=== PATIENT | male | born 1950 | race Caucasian/White ===

== ENCOUNTER 2018-02-20 19:10 | Inpatient (IN) ==
[2018-02-20] MEDS ORDERED: SALINE FLUSH 10ml SYRINGE IVF PRN (19:34)
[2018-02-20] MEDS ORDERED: DiltiaZEM 25 MG/5 ML INJECTION IVP ONE (19:35)
--- NOTE | 2018-02-20 20:57 | Emergency Department Report ---
SOB HPI - General Chief Complaint: Shortness of Breath/Dyspnea <Adriano Aguirre 02/20/18 21:13> Stated Complaint: hbp <Adriano Aguirre 02/20/18 21:13> Time Seen by Provider: 02/20/18 19:22 <Adriano Aguirre 02/20/18 21:13> Source: patient <Jane Coats 02/20/18 21:11> Mode of arrival: ambulatory <Jorge LJane 02/20/18 21:11> Limitations: no limitations <Jorge LJane Angella Marla 02/20/18 21:11> - History of Present Illness Pt presented to his PCP this afternoon with a complaint of SOA and cough for about 3 weeks. HR of 150 noted at PCP and pt sent to ER. When pt first developed cough and SOA he assumed he had Lyme disease and started treating himself with Vitamin C and another herbal medication. PT denies chest pain, palpitations, fever, weakness, or rash <Jane Coats 02/20/18 21:11> MD Complaint: shortness of breath, cough <Jane Coats 02/20/18 21:11> Onset (ago): week(s) <Jane Coats 02/20/18 21:11> Consistency/Duration: constant <Jane Coats 02/20/18 21:11> Relieving factors: nothing <Jane Coats 02/20/18 21:11> Exacerbating factors: exertion <Jane Coats 02/20/18 21:11> Associated symptoms: denies other symptoms <Jane Coats 02/20/18 21: 11> - Related Data Home Medications Medication Instructions Recorded Confirmed Ascorbate Calcium [Vitamin C] 500 mg PO DAILY 02/20/18 02/20/18 Garlic 1 tab PO DAILY 02/20/18 02/20/18 Magnesium Oxide [Magnesium] 400 mg PO DAILY 02/20/18 02/20/18 Potassium 99 mg PO DAILY 02/20/18 02/20/18 <Adriano Aguirre 02/20/18 21:13> Allergies Allergy/AdvReac Type Severity Reaction Status Date / Time No Known Allergies Allergy Verified 02/20/18 19:31 <Adriano Aguirre - 02/20/18 21:13> Review of Systems All systems: reviewed and negative except as stated <Jane Coats 21:11> Constitutional: Reports: as per HPI <Jane Coats 02/20/18 21:11> Cardiovascular: Reports: as per HPI <Jane Coats 02/20/18 21:11> Respiratory: Reports: as per HPI <Jane Coats 02/20/18 21:11> Musculoskeletal: Reports: as per HPI <Jane Coats 02/20/18 21:11> Integumentary: Reports: as per HPI <Jane Coats 02/20/18 21:11> [facility] Patient Stated Medical History Other HEENT Wears glasses <Adriano Aguirre 02/20/18 21:13> Surgical History: *Hernia times 2 <Jane Coats 02/20/18 21:11> - Social History Smoking status: Never smoker <Jane Coats 02/20/18 21:11> Substance use type: does not use <Jane Coats 02/20/18 21:11> Alcohol intake frequency: does not drink <Jane Coats 02/20/18 21:11> Physical Exam - Limitations Limitations: no limitations <Jane Coats 02/20/18 21:11> - General General appearance: alert, in no apparent distress <Jane Coats 02/20 21:11> - Normal Exams: Head:: Normocephalic without trauma <Jane Coats 02/20/18 21:11> Neck:: Full range of motion, without adenopathy <Jane Coats 21:11> Chest/Respirations:: Clear all [place], with good airflow, and symmetry bilaterally <Jane Coats 02/20/18 21:11> Abdomen:: Bowel sounds positive, soft, non-tender, non-distended <Jane Coats 02/20/18 21:11> Musculoskeletal:: No tenderness, or deformity noted, good range of motion, all extremities <Jane Coats 02/20/18 21:11> Integumentary:: No rashes <Jane Coats 02/20/18 21:11> Neurological:: Patient is alert, and oriented, cranial nerves, motor/sensory/ cerebellar, exams w/o gross deficits, to observation <Jane Coats 21:11> Psychiatric:: Patient exhibits, appropriate attention, emotion and affect < Jane Coats 02/20/18 21:11> - Cardiovascular Cardiovascular exam: Present: irregular rhythm <Jane Coats 02/20/18 21:11> - Expanded Cardiovascular Exam Peripheral pulses: 2+: dorsalis pedis (L) (1+ pitting edema jacob) <Jane Coats 02/20/18 21:11> Course Vital Signs Temperature 98.6 F 02/20/18 19:10 Pulse Rate 145 H 02/20/18 19:10 Respiratory Rate 20 02/20/18 19:10 Blood Pressure 128/69 02/20/18 19:10 Pulse Oximetry 95 02/20/18 19:10 Temperature 98.6 F 02/20/18 19:10 Pulse Rate 113 H 02/20/18 20:53 Respiratory Rate 31 H 02/20/18 20:53 Blood Pressure 111/73 02/20/18 20:53 Pulse Oximetry 95 02/20/18 20:53 <Adriano Aguirre - 02/20/18 21:13> Vital Signs Temperature 98.6 F 02/20/18 19:10 Pulse Rate 145 H 02/20/18 19:10 Respiratory Rate 20 02/20/18 19:10 Blood Pressure 128/69 02/20/18 19:10 Pulse Oximetry 95 02/20/18 19:10 Temperature 98.6 F 02/20/18 19:10 Pulse Rate 114 H 02/20/18 20:28 Respiratory Rate 28 H 02/20/18 20:28 Blood Pressure 110/60 02/20/18 20:28 Pulse Oximetry 97 02/20/18 20:28 <Jane Coats 02/20/18 21:11> Shortness of Breath/Dyspnea - [facility] Narrative Medical decision making narrative: Labs reviewed with no acute findings. EKG shows an A fib with RVR, CXR shows some pulmonary edema per Dr Aguirre. Pt received 20 mg of Cardizem with a drop in his rate to 95-115. Pt also received Lovenox SQ. Dr Clemens notified and will admit to CCU. PT educated on A fib, processes and care expectations. Pt and family voice understanding. <Jane Coats - 02/20/18 21:11> - Differential Diagnosis Likely: congestive heart failure, community acquired pneumonia (arrhythmia, SC, CHF), asthma with exacerbation <Jane Coats - 02/20/18 21:11> - Lab Data Attestation: I reviewed the patient's lab results. <Jane Coats - 02/20 21:11> Result diagrams: 02/20/18 19:43 02/20/18 19:43 <Adriano Aguirre - 02/20/18 21:13> Lab Results 02/20/18 02/20/18 Range/Units 19:43 19:43 WBC 7.4 (4.5-11.0) T/MM3 RBC 4.35 L (4.50-5.90) M/MM3 Hgb 14.6 (13.5-17.5) GM/DL Hct 42.2 (41-53) % MCV 97.0 (80-100) UM3 MCH 33.6 (26-34) UUG MCHC 34.6 (31-37) GM/DL RDW Std Deviation 48.9 (36.9-50.2) FL Plt Count 141 (130-400) T/MM3 MPV 11.6 (9.4-12.4) UM3 Immature Gran % (Auto) 0.1 (0.0-0.5) % Neut % (Auto) 58.3 (33-66) % Lymph % (Auto) 34.5 (23-45) % Ellis % (Auto) 6.1 (0-9.0) % Eos % (Auto) 0.7 (0-4) % Baso % (Auto) 0.3 (0-2) % Neut # (Auto) 4.3 (1.8-7.7) T/MM3 Lymph # (Auto) 2.6 (1-4.8) T/MM3 Ellis # (Auto) 0.5 (0-0.8) T/MM3 Eos # (Auto) 0.1 (0-0.5) T/MM3 Baso # (Auto) 0.0 (0-0.2) T/MM3 Abs Immat Gran (auto) 0.01 (0.00-0.03) T/MM3 Turbidity < 20 (0-20) Sodium 143 (136-146) MEQ/L Potassium 4.1 (3.6-5) MEQ/L Chloride 112 H (98-107) MEQ/L Carbon Dioxide 21 L (22-30) MEQ/L Anion Gap 10 (5-15) meq/L BUN 18.0 (9-20) MG/DL Creatinine 1.0 (0.8-1.5) mg/dL GFR Calculation 74 BUN/Creatinine Ratio 18 (6-26) RATIO Glucose 103 (75-110) MG/DL Calculated Osmolality 277 (261-280) MOSM/KG Calcium 9.1 (8.4-10.2) MG/DL Magnesium 2.0 (1.6-2.3) MG/DL Total Bilirubin 1.00 (0.20-1.30) MG/DL Icterus Index < 2 (0-7) AST 45 (17-59) U/L ALT 51 H (1-50) U/L Alkaline Phosphatase 72 (38-126) U/L Troponin I < 0.012 (0-0.12) ng/ml NT-Pro-B Natriuret Pep 2730 H (0-175) pg/mL Total Protein 7.3 (6.3-8.2) g/dL Albumin 4.2 (3.5-5.0) g/dL Globulin 3.1 (2.4-3.6) G/DL Albumin/Globulin Ratio 1.4 (1.1-2.2) RATIO TSH 2.13 (0.47-4.68) mIU/L Specimen Hemolysis < 15 (0-25) <Adriano Aguirre C - 02/20/18 21:13> Lab Results 02/20/18 02/20/18 Range/Units 19:43 19:43 WBC 7.4 (4.5-11.0) T/MM3 RBC 4.35 L (4.50-5.90) M/MM3 Hgb 14.6 (13.5-17.5) GM/DL Hct 42.2 (41-53) % MCV 97.0 (80-100) UM3 MCH 33.6 (26-34) UUG MCHC 34.6 (31-37) GM/DL RDW Std Deviation 48.9 (36.9-50.2) FL Plt Count 141 (130-400) T/MM3 MPV 11.6 (9.4-12.4) UM3 Immature Gran % (Auto) 0.1 (0.0-0.5) % Neut % (Auto) 58.3 (33-66) % Lymph % (Auto) 34.5 (23-45) % Ellis % (Auto) 6.1 (0-9.0) % Eos % (Auto) 0.7 (0-4) % Baso % (Auto) 0.3 (0-2) % Neut # (Auto) 4.3 (1.8-7.7) T/MM3 Lymph # (Auto) 2.6 (1-4.8) T/MM3 Ellis # (Auto) 0.5 (0-0.8) T/MM3 Eos # (Auto) 0.1 (0-0.5) T/MM3 Baso # (Auto) 0.0 (0-0.2) T/MM3 Abs Immat Gran (auto) 0.01 (0.00-0.03) T/MM3 Turbidity < 20 (0-20) Sodium 143 (136-146) MEQ/L Potassium 4.1 (3.6-5) MEQ/L Chloride 112 H (98-107) MEQ/L Carbon Dioxide 21 L (22-30) MEQ/L Anion Gap 10 (5-15) meq/L BUN 18.0 (9-20) MG/DL Creatinine 1.0 (0.8-1.5) mg/dL GFR Calculation 74 BUN/Creatinine Ratio 18 (6-26) RATIO Glucose 103 (75-110) MG/DL Calculated Osmolality 277 (261-280) MOSM/KG Calcium 9.1 (8.4-10.2) MG/DL Magnesium 2.0 (1.6-2.3) MG/DL Total Bilirubin 1.00 (0.20-1.30) MG/DL Icterus Index < 2 (0-7) AST 45 (17-59) U/L ALT 51 H (1-50) U/L Alkaline Phosphatase 72 (38-126) U/L Troponin I < 0.012 (0-0.12) ng/ml NT-Pro-B Natriuret Pep 2730 H (0-175) pg/mL Total Protein 7.3 (6.3-8.2) g/dL Albumin 4.2 (3.5-5.0) g/dL Globulin 3.1 (2.4-3.6) G/DL Albumin/Globulin Ratio 1.4 (1.1-2.2) RATIO TSH 2.13 (0.47-4.68) mIU/L Specimen Hemolysis < 15 (0-25) <Jane Coats 02/20/18 21:11> - Radiology Data Attestation: I reviewed the patient's radiology results. (per Dr Aguirre) < Jane Coats 02/20/18 21:11> - EKG Data EKG #1 EKG attestation: Yes: I reviewed and interpreted this EKG. <Jane Coats 02/20/18 21:11> EKG results narrative: Atrial fibrillation with RVR. 163 bpm. No STEMI. <Adriano Aguirre 02/20/18 21:13> Rate: tachycardia <Jane Coats 02/20/18 21:11> Rhythm: A.Fib <Jane Coats 02/20/18 21:11> Disposition Clinical Impression: Atrial fibrillation with rapid ventricular response <Adriano Aguirre 02/20/18 21:13> Disposition: 02 To [facility] Acute Care <Adriano Aguirre 02/20/18 21:13> Condition: Improved <Adriano Aguirre 02/20/18 21:13> Instructions: <Adriano Aguirre 02/20/18 21:13> Prescriptions: No Action Potassium 99 mg PO DAILY Magnesium Oxide [Magnesium] 400 mg PO DAILY Garlic 1 tab PO DAILY Ascorbate Calcium [Vitamin C] 500 mg PO DAILY <Adriano Aguirre 02/20/18 21: 13> Referrals: Jane Reynolds APRN [Primary Care Provider] - <Adriano Aguirre 02/20/18 21:13> Forms: <Adriano Aguirre 02/20/18 21:13> Time of Disposition: 21:11 <Jane Coats 02/20/18 21:11> - Seen By: midlevel <Jane Coats 02/20/18 21:11>
[2018-02-20] MEDS ORDERED: ENOXAPARIN 100 MG/ML INJECTION SQ SCH (21:00)
[2018-02-20 21:36] VITALS: BMI 22.9
[2018-02-20] MEDS ORDERED: FUROSEMIDE 40 MG/4 ML INJECTION IVP ONE (22:16)
[2018-02-20] MEDS ORDERED: ACETAMINOPHEN 325 MG TABLET PO PRN (22:17)
[2018-02-20] MEDS ORDERED: SALINE FLUSH 10ml SYRINGE IV PRN (22:19)
[2018-02-20] MEDS ORDERED: ONDANSETRON 4 MG/2 ML INJECTION IVP PRN ×2 (22:19→22:39)
[2018-02-20] MEDS ORDERED: MORPHINE SULFATE 4mg INJECTION IVP PRN (22:19)
[2018-02-20] MEDS: DiltiaZEM Drip 125 MG in NS 125 ML IV SCH (22:28)
[2018-02-20] MEDS ORDERED: CALCIUM CARBONATE Chewable 500mg TABLET PO PRN (22:40)
[2018-02-20] MEDS ORDERED: POLYETHYL GLYCOL 3350 17gm PACKET PO PRN (22:41)
[2018-02-20] MEDS: ACETAMINOPHEN 325 MG TABLET PO PRN (22:41)
[2018-02-21] MEDS ORDERED: MAGNESIUM SULFATE 1gm PREMIX 1 GM/100 ML BAG IV SCH ×2 (03:30→05:00)
[2018-02-21] MEDS: MAGNESIUM OXIDE 400 MG TABLET PO SCH (08:07)
[2018-02-21] MEDS: ENOXAPARIN 100 MG/ML INJECTION SQ SCH ×2 (08:07→20:01)
[2018-02-21] MEDS: DOCUSATE SODIUM 100 MG CAPSULE PO SCH (08:08)
--- NOTE | 2018-02-21 08:17 | XRay Report ---
Indication: a fib Procedure: XR chest 1V: Encounter: Initial Comparison: 10/23/2017 Technique: A single portable AP chest radiograph was obtained. Findings: Lungs and airways: Low lung volumes with associated basilar atelectasis. No focal airspace consolidation. Pulmonary vascular indistinctness with suggestion of mild congestion. Pleura: No pleural effusion or pneumothorax. Heart and mediastinum: Cardiomegaly. The great vessels are within normal limits. Osseous structures and soft tissues: No acute osseous abnormality is seen. Impression: Cardiomegaly with suggestion of mild vascular congestion. .
--- NOTE | 2018-02-21 08:51 | Echocardiogram ---
DATE OF PROCEDURE February 21, 2018 This is a two-dimensional echo with spectral Doppler, color-flow and M-mode. It was obtained in a patient with atrial fibrillation. Left atrium is markedly dilated. Left ventricular end-diastolic dimension is increased. Left ventricle wall thickness is normal. LV function is at the lower limits of normal with ejection fraction of about 50-55%. Right atrium is dilated. Right ventricle is normal. Aortic root dimension is normal. Mitral valve is morphologically normal with severe mitral regurgitation. Aortic valve is a trileaflet structure with fibrocalcific changes with no stenosis or insufficiency. Tricuspid valve shows mild tricuspid regurgitation with moderate pulmonary hypertension with estimated pulmonary artery systolic pressure of 44. Pulmonary valve shows no pulmonary insufficiency. There is no pericardial effusion. Inferior vena cava is dilated, suggestive of elevated central venous pressure. IMPRESSION 1. Biatrial dilation. 2. Left ventricular dilation. 3. LV function at the lower limits of normal with ejection fraction of about 50 -55%. 4. Dilated inferior vena cava suggestive of elevated central venous pressure. 5. Severe mitral regurgitation. 6. Aortic sclerosis. 7. Mild tricuspid regurgitation with moderate pulmonary hypertension with estimated pulmonary artery systolic pressure of 44. MTDD
--- NOTE | 2018-02-21 08:54 | Cardiology History & Physical ---
History of Present Illness Chief complaint: SOA, Cough HPI: Mer is a 67 year old male who is known to Dr. Clemens with a history of nonrheumatic mitral valve insufficiency who presented to his PCP yesterday afternoon with a complaint of SOA and dry cough for about 3 weeks. HR of 150 noted at PCP and pt sent to ED. He reportedly first developed a cough and SOA and assumed he had Lyme disease due to recently having tick bites and started treating himself with Vitamin C and another herbal medication. EKG in the ED showed A Fib with RVR, HR 163. CXR showed cardiomegaly and mild congestion. Dr. Clemens was contacted for admission to CCU for further evaluation and management of arrhythmia. His 2D echo was reviewed and he is examined this morning in CCU by Dr. Clemens. He reports dyspnea with exertion and dry cough but denies fever, chills, sore throat, chest pain, palpitations, dizziness, lightheadedness, N/V/D, dysuria. Review of Systems - Constitutional Constitutional: Present: as per HPI - EENMT Eyes: Absent: change in vision Balance: Absent: vertigo Mouth/Throat: Present: as per HPI - Cardiovascular Cardiovascular: Present: dyspnea on exertion. Absent: chest pain, palpitations , syncope, orthopnea, heart murmur Rhythm: Absent: abnormal rhythm Vascular: Present: pedal edema - Respiratory Respiratory: Present: as per HPI - Gastrointestinal Gastrointestinal: Present: as per HPI - Genitourinary Genitourinary: Present: as per HPI - Integumentary/Breasts Integumentary: Absent: rash - Neurological Neurological: Present: as per HPI - Endocrine Endocrine: Present: as per HPI [facility] Patient Stated Medical History Other HEENT Wears glasses Clinic Medical History (Last Updated 02/20/18 @ 22:52 by Jane Reynolds APRN) Atrial fibrillation with rapid ventricular response (Acute Medical) Surgical History: *Hernia times 2 Family History: Family History (Last Updated 02/20/18 @ 22:55 by Jane Reynolds APRN) Father , age 80 History of colon surgery Mother , age 85 Cancer of breast - Social History Smoking status: Never smoker Substance use type: does not use Alcohol intake frequency: does not drink Current occupational status: employed Current occupation: recycling at [employer] Medications Home Medications Medication Instructions Recorded Confirmed Type Ascorbate Calcium [Vitamin C] 500 mg PO DAILY 02/20/18 02/20/18 History Garlic 1 tab PO DAILY 02/20/18 02/20/18 History Magnesium Oxide [Magnesium] 400 mg PO DAILY 02/20/18 02/20/18 History Potassium 99 mg PO DAILY 02/20/18 02/20/18 History Atorvastatin [Lipitor] 40 mg PO HS #30 tab 02/22/18 Rx Digoxin [Lanoxin] 250 mcg PO DAILY #30 tab 02/22/18 Rx Enoxaparin Sodium [Lovenox] 90 mg SQ BID syringe 02/22/18 Rx Furosemide [Lasix 80 mg Tab] 80 mg PO DAILY #30 tab 02/22/18 Rx Metoprolol Tartrate [Lopressor] 100 mg PO BIDWM #60 tab 02/22/18 Rx Nitroglycerin [Nitrostat] 0.4 mg SL Q5MIN3 PRN #25 tab 02/22/18 Rx Allergies Allergy/AdvReac Type Severity Reaction Status Date / Time No Known Allergies Allergy Verified 02/20/18 19:31 Exam Vital signs: Temperature 99.1 F 02/21/18 04:00 Pulse Rate 117 H 02/21/18 08:00 Respiratory Rate 28 H 02/21/18 07:30 Blood Pressure 104/76 02/21/18 07:30 Pulse Oximetry 92 02/21/18 07:30 - Constitutional no acute distress, well nourished, cooperative - Routine HEENT Exam Head: Present: normocephalic ENT: Present: mucous membranes dry - Routine Neck Exam Absent: JVD, carotid bruit - Routine Chest/Breast/Axilla Exam Chest wall: Absent: tenderness - Routine Respiratory Exam Present: rales (bibasilar). Absent: dyspnea, CTA bilaterally - Routine Cardiovascular Exam Present: murmur - Detailed Cardiovascular Exam: Murmur 3 Type: Present: holosystolic Location: Present: apex - Routine Abdominal Exam Present: soft, non tender - Routine Extremities Exam Present: edema (LE 1+) - Routine Skin Exam Present: intact, dry, warm - Routine Neurological Exam Present: alert, oriented X3 - Routine Psychiatric Exam Present: normal affect, normal thought process Results 02/22/18 04:14 02/22/18 04:14 Cardiac Enzymes 02/21/18 Range/Units 02:10 AST 45 (17-59) U/L Troponin I < 0.012 (0-0.12) ng/ml CBC 02/21/18 Range/Units 02:10 WBC 7.2 (4.5-11.0) T/MM3 RBC 4.39 L (4.50-5.90) M/MM3 Hgb 14.8 (13.5-17.5) GM/DL Hct 42.7 (41-53) % Plt Count 148 (130-400) T/MM3 Neut # (Auto) 4.2 (1.8-7.7) T/MM3 Lymph # (Auto) 2.5 (1-4.8) T/MM3 [place] # (Auto) 0.4 (0-0.8) T/MM3 Eos # (Auto) 0.1 (0-0.5) T/MM3 Baso # (Auto) 0.0 (0-0.2) T/MM3 Comprehensive Metabolic Panel 02/21/18 Range/Units 02:10 Sodium 144 (136-146) MEQ/L Potassium 3.6 (3.6-5) MEQ/L Chloride 108 H (98-107) MEQ/L Carbon Dioxide 25 (22-30) MEQ/L BUN 18.0 (9-20) MG/DL Creatinine 1.0 (0.8-1.5) mg/dL Glucose 103 (75-110) MG/DL Calcium 8.8 (8.4-10.2) MG/DL AST 45 (17-59) U/L ALT 52 H (1-50) U/L Alkaline Phosphatase 70 (38-126) U/L Total Protein 7.2 (6.3-8.2) g/dL Albumin 4.1 (3.5-5.0) g/dL Intake and Output 02/20/18 02/21/18 02/21/18 22:59 06:59 14:59 Intake Total 200.167 / 200.167 100 / 100 Output Total 425 / 425 2700 / 2700 Balance -425 / -425 -2499.833 / -2499.833 100 / 100 Intake: IV 150.167 / 150.167 100 / 100 DiltiaZEM Drip 125 mg In Ns 125 50.167 / 50.167 ml @ 5 mls/hr IV .Q24H YEMI Rx# :[id number] MAGNESIUM SULFATE 1gm PREMIX 1 100 / 100 100 / 100 gm In 100 ml @ 100 mls/hr IV . Q1H YEMI Rx#:[id number] Oral 50 / 50 Output: Urine 425 / 425 2700 / 2700 Other: Urine Appearance Clear Clear Urine Color Yellow Pale Weight 155 lb 6.814 oz - Imaging and Cardiology Imaging & Cardiology Narrative: Date of Exam: 02/20/18 Ordering Provider: Jane Coats APRN Type of Exam(s): XR chest 1V Reason for Exam(s): a fib Indication: a fib Procedure: XR chest 1V: Encounter: Initial Comparison: 10/23/2017 Technique: A single portable AP chest radiograph was obtained. Findings: Lungs and airways: Low lung volumes with associated basilar atelectasis. No focal airspace consolidation. Pulmonary vascular indistinctness with suggestion of mild congestion. Pleura: No pleural effusion or pneumothorax. Heart and mediastinum: Cardiomegaly. The great vessels are within normal limits. Osseous structures and soft tissues: No acute osseous abnormality is seen. Impression: Cardiomegaly with suggestion of mild vascular congestion. 02/21/18 08:58 02/21/18 08:58 Date of Exam: 02/21/18 Type of Exam(s): US echo doppler complete DATE OF PROCEDURE February 21, 2018 This is a two-dimensional echo with spectral Doppler, color-flow and M-mode. It was obtained in a patient with atrial fibrillation. Left atrium is markedly dilated. Left ventricular end-diastolic dimension is increased. Left ventricle wall thickness is normal. LV function is at the lower limits of normal with ejection fraction of about 50-55%. Right atrium is dilated. Right ventricle is normal. Aortic root dimension is normal. Mitral valve is morphologically normal with severe mitral regurgitation. Aortic valve is a trileaflet structure with fibrocalcific changes with no stenosis or insufficiency. Tricuspid valve shows mild tricuspid regurgitation with moderate pulmonary hypertension with estimated pulmonary artery systolic pressure of 44. Pulmonary valve shows no pulmonary insufficiency. There is no pericardial effusion. Inferior vena cava is dilated, suggestive of elevated central venous pressure. IMPRESSION 1. Biatrial dilation. 2. Left ventricular dilation. 3. LV function at the lower limits of normal with ejection fraction of about 50 -55%. 4. Dilated inferior vena cava suggestive of elevated central venous pressure. 5. Severe mitral regurgitation. 6. Aortic sclerosis. 7. Mild tricuspid regurgitation with moderate pulmonary hypertension with estimated pulmonary artery systolic pressure of 44. EKG interpretations - EKG EKG shows: atrial fibrillation (HR 163) - Blocks, axis, hypertrophy, ST abn Repolarization changes or abnormalities: nonspecific abnormality, ST segment, and/or T wave Hospital Course This is a general summary of the patient's hospital course. For more details refer to the complete medical record. Time spent with patient: 25 - 35 minutes Resuscitation Status: Full Code Assessment and Plan - Attestation Attestation Narrative: 02/22/18 18:14 Recommendation After examining the patient I agree with the above assessment. I am involved in the formulation of the patient's plan of care. - Assessment and Plan (1) Atrial fibrillation with rapid ventricular response Current visit: No Status: Acute Likely been in A Fib a long period of time due to cardiomegaly and Biatrial dilation. - Pulmonary congestion due to elevated rate, persistent tachycardia with 10mg/ hr Cardizem drip - Plan is rate control not rhythm control due to biatrial dilation - Metoprolol 50mg bid for rate control and wean Cardizem drip - Continue Lovenox for now and monitor HGB/ Platelets, will need lifelong anticoagulation to prevent CVA. (2) Acute systolic (congestive) heart failure Current visit: Yes Status: Acute 2D echo: LV function at the lower limits of normal with ejection fraction of about 50-55%. Dilated inferior vena cava suggestive of elevated central venous pressure. Mild tricuspid regurgitation with moderate pulmonary hypertension with estimated pulmonary artery systolic pressure of 44. - Diureses with Lasix 40mg IV Q8H - monitor renal and electrolytes - Plan Right and Left heart cath (3) Mitral valve regurgitation Problem details: Severe Current visit: Yes Status: Acute Severe mitral regurgitation by 2D echo - Will need open heart valve replacement - Preop diagnostics needed include left and right heart cath (4) Tick bite Current visit: Yes Status: Acute Reports multiple tick bites about 3 weeks ago, one tick was attached for 5 days. - When symptoms of SOA and cough began patient assumed Lyme's Disease - Tick panel [facility] sent out
[2018-02-21] MEDS: FUROSEMIDE 40 MG/4 ML INJECTION IVP SCH ×2 (09:59→17:41)
[2018-02-21] MEDS: DiltiaZEM Drip 125 MG in NS 125 ML IV SCH (11:28)
[2018-02-21] MEDS: TRAMADOL 50 MG TABLET PO PRN ×2 (12:40→19:59)
[2018-02-21] MEDS ORDERED: METOPROLOL 5mg/5ml INJECTION IVP PRN (19:10)
[2018-02-22] MEDS: FUROSEMIDE 40 MG/4 ML INJECTION IVP SCH ×2 (00:36→08:03)
[2018-02-22] MEDS: ACETAMINOPHEN 325 MG TABLET PO PRN ×2 (01:25→15:06)
[2018-02-22 07:45] VITALS: TEMP 97.5
[2018-02-22] MEDS: MAGNESIUM OXIDE 400 MG TABLET PO SCH (08:03)
[2018-02-22] MEDS: DOCUSATE SODIUM 100 MG CAPSULE PO SCH (08:04)
[2018-02-22] MEDS ORDERED: NS 1,000 ML IV SCH (09:00)
[2018-02-22] MEDS: ENOXAPARIN 100 MG/ML INJECTION SQ SCH (09:04)
[2018-02-22] MEDS ORDERED: HEPARIN 1,000 UNITS/500 ML PREMIX (*CVL ONLY*) IV ONE (12:28)
[2018-02-22] MEDS ORDERED: IOHEXOL 350mg/ml 200ml BOTTLE ONE (12:29)
[2018-02-22] MEDS ORDERED: LIDOCAINE 1% (10mg/ml) 30ml SDV INJ ONE (12:29)
[2018-02-22] MEDS ORDERED: FentaNYL 100 MCG/2 ML INJECTION ONE (12:57)
[2018-02-22] MEDS ORDERED: MIDAZOLAM 2mg/2ml INJECTION ONE (12:58)
[2018-02-22] MEDS ORDERED: DIGOXIN 500 MCG/2 ML INJECTION ONE (13:35)
--- NOTE | 2018-02-22 14:06 | Cardiology Progress Note ---
Subjective Principal diagnosis: AFib RVR Interval history: Mer is seen in follow up for AFib RVR and severe MR. He has just undergone left and right HC, HR remains elevated, denies chest pain or pressure. Exam Vital signs: Temperature 97.5 F 02/22/18 07:42 Pulse Rate 99 02/22/18 07:42 Respiratory Rate 16 02/22/18 07:42 Blood Pressure 106/66 02/22/18 07:42 Pulse Oximetry 97 02/22/18 07:42 Inpatient Medications: Generic Name Dose Route Start Last Admin Trade Name Freq PRN Reason Stop Dose Admin Acetaminophen 650 mg 02/20/18 22:32 02/22/18 01:25 Tylenol PO 650 mg Q5H PRN Administration Discomfort Calcium Carbonate 1,000 mg 02/20/18 22:40 Tums PO PRN PRN Dyspepsia Docusate Sodium 100 mg 02/21/18 09:00 02/22/18 08:04 Colace PO Not Given DAILY YEMI Enoxaparin Sodium 90 mg 02/21/18 09:00 02/22/18 09:04 Lovenox SQ 90 mg BID YEMI Administration Furosemide 40 mg 02/21/18 09:00 02/22/18 08:03 Lasix 40 Mg/4 Ml IVP 40 mg Q8HR YEMI Administration Sodium Chloride 1,000 mls @ 75 mls/hr 02/22/18 09:00 02/22/18 11:01 Normal Saline IV 02/22/18 22:19 75 mls/hr .[id number] YEMI Infusion Magnesium Oxide 400 mg 02/21/18 09:00 02/22/18 08:03 Magox PO 400 mg DAILY YEMI Administration Metoprolol Tartrate 50 mg 02/21/18 10:09 02/22/18 08:03 Lopressor PO 50 mg BIDWM YEMI Administration Metoprolol Tartrate 5 mg 02/21/18 19:10 02/21/18 19:12 Lopressor IVP 5 mg Q4H PRN Administration Morphine Sulfate 2 - 4 mg 02/20/18 22:19 Morphine Sulfate Inj IVP Q1H PRN Pain Ondansetron HCl 4 mg 02/20/18 22:39 Zofran IVP Q6H PRN Nausea &/or vomiting Polyethylene Glycol 17 gm 02/20/18 22:41 Miralax PO DAILY PRN Potassium Chloride 20 meq 02/21/18 08:00 02/22/18 08:03 K-Dur 20 Meq Tablet PO 20 meq BIDWM YEMI Administration Sodium Chloride 10 - 80 ml 02/20/18 22:19 Iv Flush IV PRN PRN Flushing Tramadol HCl 50 mg 02/20/18 22:41 02/21/18 19:59 Ultram PO 50 mg Q6H PRN Administration Pain Discontinued Medications Generic Name Dose Route Start Last Admin Trade Name Dlq PRN Reason Stop Dose Admin Diltiazem HCl 20 mg 02/20/18 19:35 02/20/18 19:43 Cardizem 25 Mg Inj IVP 02/20/18 19:36 20 mg O ONE Administration Enoxaparin Sodium 90 mg 02/20/18 21:00 02/20/18 21:13 Lovenox SQ 90 mg DAILY YEMI Administration Furosemide 40 mg 02/20/18 22:16 02/20/18 22:20 Lasix 40 Mg/4 Ml IVP 02/20/18 22:17 40 mg O ONE Administration Diltiazem HCl 125 mg/ Sodium 125 mls @ 5 mls/hr 02/20/18 22:15 02/21/18 16:45 Chloride IV Infused .Q24H YEMI Infusion Protocol Magnesium Sulfate/Dextrose 1 gm in 100 mls @ 100 mls/hr 02/21/18 03:30 04:50 Mag Sulf 1gm Premix IV 02/22/18 04:29 Infused O YEMI Infusion Magnesium Sulfate/Dextrose 1 gm in 100 mls @ 100 mls/hr 02/21/18 05:00 08:30 Mag Sulf 1gm Premix IV 02/21/18 05:59 Infused .Q1H YEMI Infusion Metoprolol Tartrate 50 mg 02/21/18 17:30 Lopressor PO BIDWM YEMI Ondansetron HCl 4 mg 02/20/18 22:19 Zofran IVP Q6H PRN Nausea Potassium Chloride 20 meq 02/21/18 03:21 02/21/18 03:34 K-Dur 20 Meq Tablet PO 02/21/18 03:22 20 meq O ONE Administration Sodium Chloride 10 - 80 ml 02/20/18 19:34 02/20/18 19:42 Iv Flush IVF 10 ml PRN PRN Administration Flushing - Constitutional no acute distress, well nourished, cooperative - Routine HEENT Exam Head: Present: normocephalic ENT: Present: mucous membranes dry - Routine Neck Exam Absent: JVD, carotid bruit - Routine Chest/Breast/Axilla Exam Chest wall: Absent: tenderness, pacemaker - Routine Respiratory Exam Present: CTA bilaterally, diminished air movement. Absent: dyspnea, rales - Routine Cardiovascular Exam Present: murmur (II/), tachycardia, irregularly irregular - Routine Abdominal Exam Present: soft, non tender - Routine Extremities Exam Present: edema - Routine Skin Exam Present: intact, dry, warm - Routine Neurological Exam Present: alert, oriented X3 - Routine Psychiatric Exam Present: normal affect, normal thought process Results 02/22/18 04:14 02/22/18 04:14 CBC 02/22/18 Range/Units 04:14 WBC 7.5 (4.5-11.0) T/MM3 RBC 4.58 (4.50-5.90) M/MM3 Hgb 15.2 (13.5-17.5) GM/DL Hct 44.4 (41-53) % Plt Count 161 (130-400) T/MM3 Comprehensive Metabolic Panel 02/22/18 Range/Units 04:14 Sodium 141 (136-146) MEQ/L Potassium 3.6 (3.6-5) MEQ/L Chloride 103 (98-107) MEQ/L Carbon Dioxide 27 (22-30) MEQ/L BUN 27.0 H D (9-20) MG/DL Creatinine 1.2 D (0.8-1.5) mg/dL Glucose 99 (75-110) MG/DL Calcium 8.7 (8.4-10.2) MG/DL Intake and Output 02/21/18 02/22/18 02/22/18 22:59 06:59 14:59 Intake Total 0 / 0 221.25 / 221.25 Output Total 850 / 850 600 / 600 675 / 675 Balance -850 / -850 -600 / -600 -453.75 / -453.75 Intake: IV 0 / 0 221.25 / 221.25 DiltiaZEM Drip 125 mg In Ns 125 0 / 0 ml @ 5 mls/hr IV .Q24H [facility] [place] Rx# :[id number] Ns 1,000 ml @ 75 mls/hr IV . 221.25 / 221.25 [id number] [facility] Rx#:[id number] Output: Urine 850 / 850 600 / 600 675 / 675 Other: Urine Appearance Clear Clear Cloudy Urine Color Pale Yellow Yellow Urine Odor Normal Stool Characteristics Normal for Patient Stool Color Brown Stool Consistency Formed Size of Bowel Movement Small # Bowel Movements 1 Weight 180 lb 8.937 oz Patient Weight 02/23/18 06:59 Weight 180 lb 8.937 oz - Imaging and Cardiology Imaging & Cardiology Narrative: Date of Exam: 02/20/18 Ordering Provider: Jane Coats APRN Type of Exam(s): XR chest 1V Reason for Exam(s): a fib Indication: a fib Procedure: XR chest 1V: Encounter: Initial Comparison: 10/23/2017 Technique: A single portable AP chest radiograph was obtained. Findings: Lungs and airways: Low lung volumes with associated basilar atelectasis. No focal airspace consolidation. Pulmonary vascular indistinctness with suggestion of mild congestion. Pleura: No pleural effusion or pneumothorax. Heart and mediastinum: Cardiomegaly. The great vessels are within normal limits. Osseous structures and soft tissues: No acute osseous abnormality is seen. Impression: Cardiomegaly with suggestion of mild vascular congestion. . 02/22/18 14:06 02/22/18 14:06 Date of Exam: 02/21/18 Type of Exam(s): US echo doppler complete DATE OF PROCEDURE February 21, 2018 This is a two-dimensional echo with spectral Doppler, color-flow and M-mode. It was obtained in a patient with atrial fibrillation. Left atrium is markedly dilated. Left ventricular end-diastolic dimension is increased. Left ventricle wall thickness is normal. LV function is at the lower limits of normal with ejection fraction of about 50-55%. Right atrium is dilated. Right ventricle is normal. Aortic root dimension is normal. Mitral valve is morphologically normal with severe mitral regurgitation. Aortic valve is a trileaflet structure with fibrocalcific changes with no stenosis or insufficiency. Tricuspid valve shows mild tricuspid regurgitation with moderate pulmonary hypertension with estimated pulmonary artery systolic pressure of 44. Pulmonary valve shows no pulmonary insufficiency. There is no pericardial effusion. Inferior vena cava is dilated, suggestive of elevated central venous pressure. IMPRESSION 1. Biatrial dilation. 2. Left ventricular dilation. 3. LV function at the lower limits of normal with ejection fraction of about 50 -55%. 4. Dilated inferior vena cava suggestive of elevated central venous pressure. 5. Severe mitral regurgitation. 6. Aortic sclerosis. 7. Mild tricuspid regurgitation with moderate pulmonary hypertension with estimated pulmonary artery systolic pressure of 44. Assessment and Plan - Assessment and Plan (1) Atrial fibrillation with rapid ventricular response Current visit: No Status: Acute (2) Acute systolic (congestive) heart failure Current visit: Yes Status: Acute (3) Mitral valve regurgitation Problem details: Severe Current visit: Yes Status: Acute (4) Tick bite Current visit: Yes Status: Acute - Assessment and Plan 02/21/18 Atrial fibrillation with rapid ventricular response Current visit: No Status: Acute - Likely been in A Fib a long period of time due to cardiomegaly and Biatrial dilation. - Pulmonary congestion due to elevated rate, persistent tachycardia with 10mg/ hr Cardizem drip - Plan is rate control not rhythm control due to biatrial dilation - Metoprolol 50mg bid for rate control and wean Cardizem drip - Continue Lovenox for now and monitor HGB/ Platelets, will need lifelong anticoagulation to prevent CVA. Acute systolic (congestive) heart failure Current visit: Yes Status: Acute - 2D echo: LV function at the lower limits of normal with ejection fraction of about 50-55%. Dilated inferior vena cava suggestive of elevated central venous pressure. Mild tricuspid regurgitation with moderate pulmonary hypertension with estimated pulmonary artery systolic pressure of 44. - Diureses with Lasix 40mg IV Q8H - monitor renal and electrolytes - Plan Right and Left heart cath Mitral valve regurgitation Problem details: Severe Current visit: Yes Status: Acute - Severe mitral regurgitation by 2D echo - Will need open heart valve replacement - Preop diagnostics needed include left and right heart cath Tick bite Current visit: Yes Status: Acute - Reports multiple tick bites about 3 weeks ago, one tick was attached for 5 days. - When symptoms of SOA and cough began patient assumed Lyme's Disease - Tick panel [facility] sent out 02/22/18 S/P LHC & RHC: LAD with 80% stenosis - EF 30% - Mitral regurgitation is severe. - Recommend transfer for surgical repair or replacement. - Digoxin given in CVL for RVR, Repeat 0.25mg IV at 1999 - Digoxin 0.25mg po daily starting tomorrow am - Increase metoprolol to 100mg BID - Atorvastatin 40mg Q HS - Change Lasix to 80mg po daily Hospital Course Summary Disclaimer: The visit summary below is not to be considered part of the above Progress Note.
[2018-02-22] MEDS ORDERED: METOCLOPRAMIDE 10mg/2ml INJECTION IVP PRN (14:15)
[2018-02-22] MEDS ORDERED: Bisacodyl EC TAB 5 MG TABLET PO PRN (14:15)
[2018-02-22] MEDS ORDERED: NITROGLYCERIN 0.4 MG SUBLINGUAL TABLET SL PRN (14:15)
[2018-02-22] MEDS ORDERED: BISACODYL 10 MG SUPPOSITORY RECTALLY PRN (14:15)
[2018-02-22] MEDS ORDERED: LORazepam 0.5 MG TABLET PO PRN (14:15)
[2018-02-22] MEDS ORDERED: MORPHINE SULFATE 4mg INJECTION IVP PRN ×2 (14:15)
[2018-02-22] MEDS ORDERED: ONDANSETRON 4 MG/2 ML INJECTION IVP PRN (14:15)
[2018-02-22] MEDS ORDERED: ATROPINE 1 MG/ML INJECTION IVP PRN (14:15)
[2018-02-22] MEDS ORDERED: HYDROCODONE/APAP 7.5 MG/325 MG TABLET PO PRN (14:15)
[2018-02-22] MEDS ORDERED: MAG-AL + SIM ORAL LIQUID 30ml PO PRN (14:15)
[2018-02-22] MEDS ORDERED: PROMETHAZINE 25 MG INJECTION IVP PRN (14:15)
[2018-02-22] MEDS ORDERED: ACETAMINOPHEN 325 MG TABLET PO PRN (14:15)
[2018-02-22 14:37] VITALS: O2SAT 94
--- NOTE | 2018-02-22 15:21 | Cardiac Catheterization Report ---
DATE OF PROCEDURE February 22, 2018. The patient is a 67-year-old gentleman who was admitted with congestive heart failure and atrial fibrillation with rapid ventricular rate with abnormal echocardiogram revealing severe mitral regurgitation and was referred for further evaluation by cardiac catheterization and possible intervention. Informed consent was obtained after explaining the procedure and the potential risks to the patient who agreed to proceed with the procedure. PROCEDURE 1. Left heart catheterization. 2. Coronary angiography. 3. Left ventriculography. 4. Right heart catheterization. 5. Right femoral angiography to visualize the vessel for closure device. 5. Successful Mynx deployment for hemostasis. TECHNIQUE The patient was prepped and draped in the usual sterile techniques. Conscious sedation was performed using Versed and fentanyl. 1% lidocaine was used for local anesthesia. Using modified Seldinger technique, arterial access was obtained into the right femoral artery with placement of a 6-[place] arterial sheath. Venous access was obtained into the right femoral vein with placement of a 7-[place] venous sheath. HEMODYNAMIC DATA: Hemodynamic data were obtained by advancing a Roland-Jarvis catheter through the venous system and right heart into the pulmonary artery position. Pulmonary capillary wedge pressure mean of 15, pulmonary artery pressure of 24/ 14 with a mean of 17, right ventricular pressure 21/2 with an EDP of 1, right ventricular pressure mean of 2, and right atrial mean pressure of 2. Aortic saturation was 95% and mixed venous saturation was 51.6%. LEFT VENTRICULOGRAPHY: Left ventriculography in single-plane LUGO shallow projection showed global hypokinesia with ejection fraction of about 30% with severe mitral regurgitation and no gradient across the aortic valve. LVEDP was about 4. CORONARY ANGIOGRAPHY: Left main was free of significant lesions and bifurcated into left anterior descending and left circumflex arteries. Left anterior descending artery had an 80% stenosis at the junction of the first diagonal. It was a small-caliber vessel which wrapped around the apex. Left circumflex artery was small and nondominant with no significant lesions. Right coronary artery was dominant and medium-caliber vessel with no significant lesions. Right femoral angiography showed patent common femoral, proximal SFA and profunda and therefore Mynx was used for hemostasis. IMPRESSION 1. Normal right heart pressures. 2. Severe mitral regurgitation. 3. Global hypokinesia with ejection fraction of about 30%. 4. Coronary artery disease as described above involving LAD. 5. Successful Mynx deployment for hemostasis. PLAN Will refer the patient to Surgery for possible mitral valve replacement/repair and coronary artery bypass graft. SUNITA
--- NOTE | 2018-02-22 16:53 | Discharge Summary ---
Discharge Information Date of admission: 02/21/18 10:31 Anticipated date of discharge: 02/22/18 Attending Physician: Julián Clemens MD Primary care physician: Jane Reynolds APRN Consults: 02/22/18 14:15 Outpt Cardiac Rehab Consult [CONS] Routine - Discharge Diagnosis (1) Atrial fibrillation with rapid ventricular response Status: Acute (2) Acute systolic (congestive) heart failure Status: Acute (3) Mitral valve regurgitation Status: Acute (4) Tick bite Status: Acute - Procedures Procedures: Date of Exam: 02/22/18 Type of Exam(s): CA heart cath LT/RT DATE OF PROCEDURE February 22, 2018. The patient is a 67-year-old gentleman who was admitted with congestive heart failure and atrial fibrillation with rapid ventricular rate with abnormal echocardiogram revealing severe mitral regurgitation and was referred for further evaluation by cardiac catheterization and possible intervention. Informed consent was obtained after explaining the procedure and the potential risks to the patient who agreed to proceed with the procedure. PROCEDURE 1. Left heart catheterization. 2. Coronary angiography. 3. Left ventriculography. 4. Right heart catheterization. 5. Right femoral angiography to visualize the vessel for closure device. 5. Successful Mynx deployment for hemostasis. TECHNIQUE The patient was prepped and draped in the usual sterile techniques. Conscious sedation was performed using Versed and fentanyl. 1% lidocaine was used for local anesthesia. Using modified Seldinger technique, arterial access was obtained into the right femoral artery with placement of a 6-[place] arterial sheath. Venous access was obtained into the right femoral vein with placement of a 7-[place] venous sheath. HEMODYNAMIC DATA: Hemodynamic data were obtained by advancing a Black-Jarvis catheter through the venous system and right heart into the pulmonary artery position. Pulmonary capillary wedge pressure mean of 15, pulmonary artery pressure of 24/ 14 with a mean of 17, right ventricular pressure 21/2 with an EDP of 1, right ventricular pressure mean of 2, and right atrial mean pressure of 2. Aortic saturation was 95% and mixed venous saturation was 51.6%. LEFT VENTRICULOGRAPHY: Left ventriculography in single-plane LUGO shallow projection showed global hypokinesia with ejection fraction of about 30% with severe mitral regurgitation and no gradient across the aortic valve. LVEDP was about 4. CORONARY ANGIOGRAPHY: Left main was free of significant lesions and bifurcated into left anterior descending and left circumflex arteries. Left anterior descending artery had an 80% stenosis at the junction of the first diagonal. It was a small-caliber vessel which wrapped around the apex. Left circumflex artery was small and nondominant with no significant lesions. Right coronary artery was dominant and medium-caliber vessel with no significant lesions. Right femoral angiography showed patent common femoral, proximal SFA and profunda and therefore Mynx was used for hemostasis. IMPRESSION 1. Normal right heart pressures. 2. Severe mitral regurgitation. 3. Global hypokinesia with ejection fraction of about 30%. 4. Coronary artery disease as described above involving LAD. 5. Successful Mynx deployment for hemostasis. PLAN Will refer the patient to Surgery for possible mitral valve replacement/repair and coronary artery bypass graft. - Laboratory Labs: 02/22/18 04:14 02/22/18 04:14 History of Present Illness HPI: Mer is a 67 year old male who is known to Dr. Clemens with a history of nonrheumatic mitral valve insufficiency who presented to his PCP yesterday afternoon with a complaint of SOA and dry cough for about 3 weeks. HR of 150 noted at PCP and pt sent to ED. He reportedly first developed a cough and SOA and assumed he had Lyme disease due to recently having tick bites and started treating himself with Vitamin C and another herbal medication. EKG in the ED showed A Fib with RVR, HR 163. CXR showed cardiomegaly and mild congestion. Dr. Clemens was contacted for admission to CCU for further evaluation and management of arrhythmia. His 2D echo was reviewed and he is examined this morning in CCU by Dr. Clemens. He reports dyspnea with exertion and dry cough but denies fever, chills, sore throat, chest pain, palpitations, dizziness, lightheadedness, N/V/D, dysuria. Hospital Course This is a general summary of the patient's hospital course. For more details refer to the complete medical record. Hospital course: 02/21/18 Atrial fibrillation with rapid ventricular response Current visit: No Status: Acute - Likely been in A Fib a long period of time due to cardiomegaly and Biatrial dilation. - Pulmonary congestion due to elevated rate, persistent tachycardia with 10mg/ hr Cardizem drip - Plan is rate control not rhythm control due to biatrial dilation - Metoprolol 50mg bid for rate control and wean Cardizem drip - Continue Lovenox for now and monitor HGB/ Platelets, will need lifelong anticoagulation to prevent CVA. Acute systolic (congestive) heart failure Current visit: Yes Status: Acute - 2D echo: LV function at the lower limits of normal with ejection fraction of about 50-55%. Dilated inferior vena cava suggestive of elevated central venous pressure. Mild tricuspid regurgitation with moderate pulmonary hypertension with estimated pulmonary artery systolic pressure of 44. - Diureses with Lasix 40mg IV Q8H - monitor renal and electrolytes - Plan Right and Left heart cath Mitral valve regurgitation Problem details: Severe Current visit: Yes Status: Acute - Severe mitral regurgitation by 2D echo - Will need open heart valve replacement - Preop diagnostics needed include left and right heart cath Tick bite Current visit: Yes Status: Acute - Reports multiple tick bites about 3 weeks ago, one tick was attached for 5 days. - When symptoms of SOA and cough began patient assumed Lyme's Disease - Tick panel [facility] sent out 02/22/18 S/P LHC & RHC: LAD with 80% stenosis - EF 30% - Mitral regurgitation is severe. - Recommend transfer for surgical repair or replacement. - Digoxin given in CVL for RVR, Repeat 0.25mg IV at 1999 - Digoxin 0.25mg po daily starting tomorrow am - Increase metoprolol to 100mg BID - Atorvastatin 40mg Q HS - Change Lasix to 80mg po daily Time spent with patient: greater than 35 minutes Resuscitation Status: Full Code Exam Vital signs: Temperature 97.5 F 02/22/18 07:42 Pulse Rate 111 H 02/22/18 14:30 Respiratory Rate 17 02/22/18 14:30 Blood Pressure 111/66 02/22/18 14:30 Pulse Oximetry 94 02/22/18 14:30 - Constitutional no acute distress, well nourished, cooperative - Routine HEENT Exam Head: Present: normocephalic ENT: Present: mucous membranes moist - Routine Neck Exam Absent: JVD, carotid bruit - Routine Chest/Breast/Axilla Exam Chest wall: Absent: tenderness, pacemaker - Routine Respiratory Exam Present: CTA bilaterally. Absent: dyspnea, rales - Routine Cardiovascular Exam Present: murmur (II/), irregular rhythm - Routine Abdominal Exam Present: soft, non tender - Routine Extremities Exam Present: edema (trace), pulses intact - Routine Skin Exam Present: intact, dry, warm - Routine Neurological Exam Present: alert, oriented X3 - Routine Psychiatric Exam Present: normal affect, normal thought process Results 02/22/18 04:14 02/22/18 04:14 Lipids 02/22/18 Range/Units 04:14 Triglycerides 102 (40-160) mg/dL Cholesterol 171 (132-199) mg/dL HDL Cholesterol 46 (40-60) mg/dL Cholesterol/HDL Ratio 3.7 (0-5.0) RATIO CBC 02/22/18 Range/Units 04:14 WBC 7.5 (4.5-11.0) T/MM3 RBC 4.58 (4.50-5.90) M/MM3 Hgb 15.2 (13.5-17.5) GM/DL Hct 44.4 (41-53) % Plt Count 161 (130-400) T/MM3 Comprehensive Metabolic Panel 02/22/18 Range/Units 04:14 Sodium 141 (136-146) MEQ/L Potassium 3.6 (3.6-5) MEQ/L Chloride 103 (98-107) MEQ/L Carbon Dioxide 27 (22-30) MEQ/L BUN 27.0 H D (9-20) MG/DL Creatinine 1.2 D (0.8-1.5) mg/dL Glucose 99 (75-110) MG/DL Calcium 8.7 (8.4-10.2) MG/DL Intake and Output 02/22/18 02/22/18 02/22/18 06:59 14:59 22:59 Intake Total 221.25 / 221.25 Output Total 600 / 600 675 / 675 Balance -600 / -600 -453.75 / -453.75 Intake: IV 221.25 / 221.25 Ns 1,000 ml @ 75 mls/hr IV . 221.25 / 221.25 [id number] [facility] Rx#:[id number] Output: Urine 600 / 600 675 / 675 Other: Urine Appearance Clear Urine Color Yellow Weight 180 lb 8.937 oz Patient Weight 02/23/18 06:59 Weight 180 lb 8.937 oz - Imaging and Cardiology Imaging & Cardiology Narrative: Date of Exam: 02/21/18 Type of Exam(s): US echo doppler complete DATE OF PROCEDURE February 21, 2018 This is a two-dimensional echo with spectral Doppler, color-flow and M-mode. It was obtained in a patient with atrial fibrillation. Left atrium is markedly dilated. Left ventricular end-diastolic dimension is increased. Left ventricle wall thickness is normal. LV function is at the lower limits of normal with ejection fraction of about 50-55%. Right atrium is dilated. Right ventricle is normal. Aortic root dimension is normal. Mitral valve is morphologically normal with severe mitral regurgitation. Aortic valve is a trileaflet structure with fibrocalcific changes with no stenosis or insufficiency. Tricuspid valve shows mild tricuspid regurgitation with moderate pulmonary hypertension with estimated pulmonary artery systolic pressure of 44. Pulmonary valve shows no pulmonary insufficiency. There is no pericardial effusion. Inferior vena cava is dilated, suggestive of elevated central venous pressure. IMPRESSION 1. Biatrial dilation. 2. Left ventricular dilation. 3. LV function at the lower limits of normal with ejection fraction of about 50 -55%. 4. Dilated inferior vena cava suggestive of elevated central venous pressure. 5. Severe mitral regurgitation. 6. Aortic sclerosis. 7. Mild tricuspid regurgitation with moderate pulmonary hypertension with estimated pulmonary artery systolic pressure of 44. 02/22/18 16:52 02/22/18 16:52 = = = = = = = = = = = = = = = = = = = = = = = = = = = = = = = = = = = = = = = = = = = = = = = = = = = = = = = = = = = Date of Exam: 02/20/18 Ordering Provider: Jane Coats APRN Type of Exam(s): XR chest 1V Reason for Exam(s): a fib Indication: a fib Procedure: XR chest 1V: Encounter: Initial Comparison: 10/23/2017 Technique: A single portable AP chest radiograph was obtained. Findings: Lungs and airways: Low lung volumes with associated basilar atelectasis. No focal airspace consolidation. Pulmonary vascular indistinctness with suggestion of mild congestion. Pleura: No pleural effusion or pneumothorax. Heart and mediastinum: Cardiomegaly. The great vessels are within normal limits. Osseous structures and soft tissues: No acute osseous abnormality is seen. Impression: Cardiomegaly with suggestion of mild vascular congestion. . Discharge Plan - Med Rec/Dispo Referrals/Follow Up: Julián Clemens MD [Physician] - 3 Weeks [place] Instructions: [facility] Heart Cath Prescriptions: New Atorvastatin [Lipitor] 40 mg PO HS #30 tab Digoxin [Lanoxin] 250 mcg PO DAILY #30 tab Furosemide [Lasix 80 mg Tab] 80 mg PO DAILY #30 tab Metoprolol Tartrate [Lopressor] 100 mg PO BIDWM #60 tab Nitroglycerin [Nitrostat] 0.4 mg SL Q5MIN3 PRN #25 tab PRN Reason: Angina Continue Potassium 99 mg PO DAILY Magnesium Oxide [Magnesium] 400 mg PO DAILY Garlic 1 tab PO DAILY Ascorbate Calcium [Vitamin C] 500 mg PO DAILY - Disposition 02 To OR Heart Acute Care - Dismissal Complete Discharge Instructions are:: Complete
[2018-02-22 18:50] VITALS: BP 114/76; PULSE 90; RESP 10
[2018-02-22] MEDS ORDERED: DIGOXIN 500 MCG/2 ML INJECTION IVP ONE (20:00)
[2018-02-22] MEDS ORDERED: DIGOXIN 500 MCG/2 ML INJECTION IVP SCH (20:00)
[2018-02-22] MEDS ORDERED: ATORVASTATIN 40 MG TABLET PO SCH (21:00)
[2018-02-23] MEDS ORDERED: FUROSEMIDE 80 MG TABLET PO SCH (09:00)
[2018-02-23] MEDS ORDERED: DIGOXIN 250 MCG TABLET PO SCH (09:00)
== END 2018-02-22 20:00 | disposition short-term general hospital (02) | DRG 286 ==
LOC: ED 19:10 → INTOOBSV 21:00 → EDHOLD 21:00 → CCU 21:25 → SRG 02-21 16:26
PROVIDERS: ADMIT Internal Medicine Cardiovascular Disease; ATTEND Internal Medicine Cardiovascular Disease